=== PATIENT | female | born 1990 | race Caucasian/White ===

== ENCOUNTER 2017-04-02 16:47 | Day surgery (SDC) | payer OTHER ==
[~2017-04-02] VITALS: Ht 165.1 cm; Wt 94.3 kg
[2017-04-02] VITALS (14 sets, daily range): BP systolic 95–119; BP diastolic 55–79; PULSE 56–89; RESP 14–27; Ht 165.1 cm; Wt 94.3 kg
[~2017-04-02 16:47] MED LIST: FENTAnyl 50 MCG/ML VIAL ONE; LIDOCAINE 2% (SDV) 5 ML INJ ONE; MIDAZOLAM 1 MG/ML 2 ML INJ ONE; PROPOFOL 200 MG INJ ONE
[2017-04-02] MEDS ORDERED: ACETAMINOPHEN 1000MG/100ML IV 100 ML ONE (17:54)
[2017-04-02] MEDS ORDERED: SUCCINYLCHOLINE CHLORIDE 100 MG/5 ML SYG IV ONE (17:55)
[2017-04-02] MEDS ORDERED: ROCURONIUM 50 MG INJ ONE (17:55)
--- NOTE | 2017-04-02 18:01 | HPN ---
Date/Time of Note Date/Time of Note DATE: 04/02/17 TIME: 18:01 Interval H&P Admission Note Pt. seen H&P reviewed: No system changes MINA GENAO MD April 02, 2017 18:01
--- NOTE | 2017-04-02 18:06 | OPR ---
Date/Time of Note Date/Time of Note DATE: 04/02/17 TIME: 18:03 Operative Report Procedure Date: April 02, 2017 Preoperative Diagnosis OSAS, Tonsillar and Lingual tonsil hypertrophy Postoperative Diagnosis Same Operation Performed Pharyngeal and lingual tonsillectomy Surgeon: MINA GENAO MD Anesthesia: general Estimated Blood Loss: 10 - 50 ml's Specimens Tonsils Complications: None Pt Condition Post Procedure: stable Disposition: PACU Indications OSAS, chronic tonsillitis Operative\Procedure Findings Symmetric hypertrophy Procedure Description Description of procedure: The patient was identified in the holding area. We had a discussion to confirm understanding of all indications risks benefits alternatives and postoperative care associated with the operation. The patient signed informed consent was taken to the operating room. The patient was laid supine on the operating room table and general anesthesia was achieved without difficulty. The face was draped in sterile fashion. A McIvor mouth gag was placed and used to retract the oral cavity open, taking care to avoid damage to the teeth. The oral cavity and pharynx were inspected and palpated to reveal symmetric hypertrophy. At this point the right palatine tonsil was grabbed superiorly with a curved Joanie clamp. It was retracted medially and monopolar cautery was used to enter the peritonsillar space. Dissection of the tonsil commenced in a superior to inferior fashion until it was completely resected. Suction Bovie cautery was used for spot hemostasis. At this point, the contralateral tonsil was removed in the exact similar fashion. Next, the lateral aspect of the lingual tonsils was performed. Fist on the right side dissecting towards the vallecula and resecting all accessible tissues. This was repeated on the contralateral side. Finally, indirect visualization with subsequent coblation ablation of the remaining tissue sparing the epiglottis was performed. There was no significant bleeding or oozing. Copious irrigation and suctioning was performed. Secondary inspection revealed no bleeding or oozing. The patient was awakened, extubated and taken to the PACU in stable condition. Complications: None MINA GENAO MD April 02, 2017 18:06
[2017-04-02] MEDS ORDERED: LABETALOL HCL 20MG INJ ONE (18:10)
[2017-04-02] MEDS ORDERED: CEFAZOLIN 1 GM INJ ONE (18:13)
[2017-04-02] MEDS ORDERED: DEXAMETHASONE 4 MG/ML 1 ML INJ ONE (18:14)
[2017-04-02] MEDS ORDERED: ONDANSETRON 4 MG INJ ONE (18:20)
[2017-04-02] MEDS ORDERED: HYDROCODONE/APAP (5/325) TAB PO PRN (18:30)
[2017-04-02] MEDS ORDERED: DIPHENHYDRAMINE 50 MG INJ IV PRN (19:00)
[2017-04-02] MEDS ORDERED: FENTAnyl 50 MCG/ML VIAL IV PRN ×3 (19:00)
[2017-04-02] MEDS ORDERED: EPHEDrine SULFATE 50 MG/5 ML SYG IV PRN (19:00)
[2017-04-02] MEDS ORDERED: METOCLOPRAMIDE 10 MG INJ IV PRN (19:00)
[2017-04-02] MEDS ORDERED: MEPERIDINE 25 MG INJ IV PRN (19:00)
[2017-04-02] MEDS ORDERED: hydrALAzine 20 MG INJ IV PRN (19:00)
[2017-04-02] MEDS ORDERED: ONDANSETRON 4 MG INJ IV PRN (19:00)
[2017-04-02] MEDS ORDERED: LABETALOL HCL 20MG INJ IV PRN (19:00)
== END 2017-04-02 19:54 | disposition home or self-care (01) ==
LOC: SDS 16:47
PROVIDERS: ATTEND Otolaryngology
DX: J35.3 Hypertrophy of tonsils with hypertrophy of adenoids (principal); G47.33 Obstructive sleep apnea (adult) (pediatric)
CPT/HCPCS: 42826; 84703; 88305; J0131; J0690; J1100; J2250; J2405; J3010; Z7512; Z7610; J0330